=== PATIENT | female | born 1990 | race Asian ===

== ENCOUNTER 2021-11-06 07:43 | Emergency (ER) | payer BC, OTHER ==
[~2021-11-06] VITALS: Ht 152.4 cm; Wt 44.0 kg
--- NOTE | 2021-11-06 07:56 | NUR ---
DR LEWIS AT BEDSIDE FOR EVAL.
[2021-11-06 08:03] LABS: HEMATOCRIT 27.3 % (31.2-41.9); MEAN CORPUSCULAR HEMOGLOBIN 29.4 uug (24.7-32.8); MEAN CORPUSCULAR VOLUME 84.3 fL (75.5-95.3); PLATELET COUNT (AUTO) 364 K/uL (179-408)
[2021-11-06 08:05] LABS: CREATININE 0.6 mg/dL (0.6-1.3); POTASSIUM 4.1 mmol/L (3.5-5.1)
[2021-11-06] MEDS ORDERED: METF-440 PO (08:18)
--- NOTE | 2021-11-06 08:23 | NUR ---
Patient discharged to home in stable condition. Written and verbal after care instructions given. Patient verbalizes understanding of instructions. Stressed follow up or return to ER for worsening s/s.
== END 2021-11-06 08:24 | disposition home or self-care (01) ==
LOC: ER 07:43
DX: R73.9 Hyperglycemia, unspecified (principal); D56.1 Beta thalassemia
CPT/HCPCS: 36415; 85025; A4663